=== PATIENT | female | born 1980 | race Two or more races ===

== ENCOUNTER → 2019-10-29 | Outpatient (CLI) | payer OTHER | END | disposition home or self-care (01) | LOC: PRENATAL 15:35 | DX: O34.211 Maternal care for low transverse scar from previous cesarean delivery (principal); O36.80X1 Pregnancy with inconclusive fetal viability, fetus 1; Z36 Encounter for antenatal screening of mother; O09.521 Supervision of elderly multigravida, first trimester; Z36.82 Encounter for antenatal screening for nuchal translucency ==

== ENCOUNTER → 2019-12-14 | Outpatient (CLI) | payer OTHER | END | disposition home or self-care (01) | LOC: PRENATAL 09:55 | DX: O28.1 Abnormal biochemical finding on antenatal screening of mother (principal); O09.522 Supervision of elderly multigravida, second trimester; O09.92 Supervision of high risk pregnancy, unspecified, second trimester; O34.12 Maternal care for benign tumor of corpus uteri, second trimester; D25.9 Leiomyoma of uterus, unspecified; O34.211 Maternal care for low transverse scar from previous cesarean delivery; Z36.89 Encounter for other specified antenatal screening; O09.212 Supervision of pregnancy with history of pre-term labor, second trimester; O09.292 Supervision of pregnancy with other poor reproductive or obstetric history, second trimester; O35.3XX1 Maternal care for (suspected) damage to fetus from viral disease in mother, fetus 1 ==

== ENCOUNTER → 2020-02-08 | Outpatient (CLI) | payer OTHER | END | disposition home or self-care (01) | LOC: PRENATAL 09:00 | DX: O28.1 Abnormal biochemical finding on antenatal screening of mother (principal); O26.843 Uterine size-date discrepancy, third trimester; O09.93 Supervision of high risk pregnancy, unspecified, third trimester; O34.13 Maternal care for benign tumor of corpus uteri, third trimester; Z36.89 Encounter for other specified antenatal screening ==

== ENCOUNTER → 2020-04-04 | Outpatient (CLI) | payer OTHER | END | disposition home or self-care (01) | LOC: PRENATAL 10:30 | PROVIDERS: ATTEND Obstetrics & Gynecology Obstetrics | DX: O26.843 Uterine size-date discrepancy, third trimester (principal); O09.523 Supervision of elderly multigravida, third trimester; O40.3XX1 Polyhydramnios, third trimester, fetus 1; O09.93 Supervision of high risk pregnancy, unspecified, third trimester; O34.211 Maternal care for low transverse scar from previous cesarean delivery; O35.0XX1 Maternal care for (suspected) central nervous system malformation in fetus, fetus 1 ==

== ENCOUNTER 2021-04-10 10:50 | Outpatient (CLI) | payer OTHER | END 2021-04-10 11:51 | disposition home or self-care (01) | LOC: SONOGRAMA 10:50 | PROVIDERS: ATTEND Pathology Anatomic Pathology & Clinical Pathology | DX: E04.2 Nontoxic multinodular goiter (principal) ==